=== PATIENT | male | born 1975 | race Caucasian/White ===

== ENCOUNTER 2017-02-26 00:36 | Emergency (ER) | payer BC, OTHER ==
[~2017-02-26] VITALS: Ht 180.3 cm; Wt 72.6 kg
--- NOTE | ~2017-02-26 | EKG ---
[address] [address] ELECTROCARDIOGRAM REPORT Name: BLANCA BERNAL Room #: [facility]#: [id number] Admission: 02/26/17 Attend Phys: Discharge: 02/26/17 Date of : 77 Report #: [id number] THIS REPORT FOR: //name// [facility] ED Test Date: 2017-02-26 Test Time: 00:39:48 Pat Name: BLANCA BERNAL Department: Room: Gender: M Assistant To The Vice President: VIVIANA : 1975 Requested By: Ruba Boyd Order Number: [id number] MD: Angel Cam Measurements Intervals [place] Rate: 69 P: 62 W[place]: 146 QRS: 74 QRSD: 109 T: 43 QT: 414 QTc: 444 Interpretive Statements Sinus rhythm RSR' in V1 or V2, right VCD No previous ECG available for comparison Electronically Signed On 02-27-2017 8:48:32 CDT by Anegl Cam [email or web address] <ELECTRONICALLY SIGNED> By: Angel Cam MD, [facility] 02/27/17 0848 0039 [id number] Angel Cam MD, FACC /EPI
[2017-02-26 01:19] LABS: ABSOLUTE NEUTROPHILS 5.1 thou/uL (1.4-8.2); EOSINOPHILS 3.7 % (0.0-3.0); HEMOGLOBIN 14.8 gm/dL (14.0-18.0); LYMPHOCYTES 24.6 % (24.0-44.0); MCH 31.1 pg (26.0-34.0); MCHC 35.3 g/dL (28.0-37.0); MCV 88.2 fL (80.0-100.0); MONOCYTES 8.5 % (1.0-8.0); PLATELET COUNT 275 thou/uL (150-400); POLYS 62.2 % (36.0-66.0); RBC 4.76 mil/uL (4.50-6.00); RDW 12.8 % (10.5-14.5); WBC 8.2 thou/uL (4.0-11.0)
[2017-02-26 01:21] LABS: CREATININE 1.2 mg/dL (0.7-1.3); POTASSIUM 3.4 mmol/L (3.5-5.1)
[2017-02-26 01:22] LABS: MAGNESIUM 1.9 mg/dL (1.8-2.4)
[2017-02-26 01:25] LABS: MANUAL DIFF NO
[2017-02-26 04:02] VITALS: BP 109/61
== END 2017-02-26 04:03 | disposition home or self-care (01) ==
LOC: ER 00:36
PROVIDERS: Emergency Medicine
DX: E86.0 Dehydration (principal); F10.99 Alcohol use, unspecified with unspecified alcohol-induced disorder